=== PATIENT | female | born 1975 | race American Indian/Alaskan Native ===

== ENCOUNTER 2017-12-11 11:10 | Emergency (ER) | payer SELFPAY ==
[2017-12-12 06:13] LABS: Hematocrit 40.2 % (30.3-42.9); Hemoglobin 12.9 gm/dl (10.1-14.3); Mean Corpuscular HGB Conc 32 % (30-34); Mean Corpuscular Hemoglobin 27 pg (28-32); Mean Corpuscular Volume 85 fl (79-97); Platelet Count 254 K/mm3 (140-440); Red Blood Count 4.73 M/mm3 (3.65-5.03); Red Cell Distribution Width 13.7 % (13.2-15.2)
[2017-12-12 06:22] LABS: BUN/Creatinine Ratio 10; Blood Urea Nitrogen 5 mg/dL (7-17); Hemolysis Index 9
--- NOTE | 2017-12-12 06:37 | Emergency Department Report ---
ED General Adult HPI - General Chief complaint: Weakness Stated complaint: ADDISONS DISEASE Time Seen by Provider: 12/12/17 06:29 Source: patient Mode of arrival: Ambulatory Limitations: No Limitations - History of Present Illness Initial comments: Patient states that she has been in this area for 3 months. She was informed by her physician in [place] that he could no longer continue to treat her at its state. She has a history of Manchester's disease. She is simply requesting that we renew her fludrocortisone and prednisone. She is asymptomatic at this time. She denies any recent nausea vomiting dizziness or weakness. She ran out of her medicine one week ago. -: week(s) Consistency: now resolved Improves with: none Worsens with: none Associated Symptoms: denies other symptoms Treatments Prior to Arrival: none - Related Data Previous Rx's Medication Instructions Recorded Last Taken Type Fludrocortisone [Florinef] 0.1 mg PO QDAY #30 tablet 12/12/17 Unknown Rx Prednisone 5 mg PO BID #30 tablet 12/12/17 Unknown Rx Allergies Allergy/AdvReac Type Severity Reaction Status Date / Time amoxicillin Allergy Nausea Verified 12/11/17 12:04 ED Review of Systems ROS: Stated complaint: ADDISONS DISEASE Other details as noted in HPI Constitutional: denies: chills, fever Eyes: denies: eye pain, eye discharge, vision change ENT: denies: ear pain, throat pain Respiratory: denies: cough, shortness of breath, wheezing Cardiovascular: denies: chest pain, palpitations Endocrine: no symptoms reported Gastrointestinal: denies: abdominal pain, nausea, diarrhea Genitourinary: denies: urgency, dysuria, discharge Musculoskeletal: denies: back pain, joint swelling, arthralgia Skin: denies: rash, lesions Neurological: denies: headache, weakness, paresthesias Psychiatric: denies: anxiety, depression Hematological/Lymphatic: denies: easy bleeding, easy bruising ED Past Medical Hx - Past Medical History Hx Headaches / Migraines: Yes Additional medical history: Addidsons Disease - Social History Smoking Status: Current Every Day Smoker Substance Use Type: None - Medications Home Medications: Home Medications Medication Instructions Recorded Confirmed Last Taken Type Fludrocortisone [Florinef] 0.1 mg PO QDAY #30 tablet 12/12/17 Unknown Rx Prednisone 5 mg PO BID #30 tablet 12/12/17 Unknown Rx ED Physical Exam - General Limitations: No Limitations General appearance: alert, in no apparent distress - Head Head exam: Present: atraumatic, normocephalic - Eye Eye exam: Present: normal appearance, PERRL, EOMI. Absent: scleral icterus - ENT ENT exam: Present: mucous membranes moist - Neck Neck exam: Present: normal inspection - Respiratory Respiratory exam: Present: normal lung sounds bilaterally. Absent: respiratory distress - Cardiovascular Cardiovascular Exam: Present: regular rate, normal rhythm. Absent: systolic murmur, diastolic murmur, rubs, gallop - GI/Abdominal GI/Abdominal exam: Present: soft, normal bowel sounds. Absent: distended, tenderness, guarding, rebound, rigid - Extremities Exam Extremities exam: Present: normal inspection - Back Exam Back exam: Present: normal inspection - Neurological Exam Neurological exam: Present: alert, oriented X3, CN II-XII intact. Absent: motor sensory deficit - Psychiatric Psychiatric exam: Present: normal affect, normal mood - Skin Skin exam: Present: warm, dry, intact, normal color. Absent: rash ED Course Vital Signs 12/11/17 12/12/17 12/12/17 12:05 02:48 03:00 Temperature 98.8 F 98.6 F Pulse Rate 83 64 Respiratory 16 16 Rate Blood Pressure 134/87 119/92 Blood Pressure 119/78 [Left] O2 Sat by Pulse 98 100 100 Oximetry 12/12/17 12/12/17 12/12/17 04:00 05:00 06:00 Temperature Pulse Rate Respiratory Rate Blood Pressure 121/71 127/69 118/81 Blood Pressure [Left] O2 Sat by Pulse 100 99 99 Oximetry ED Medical Decision Making - Lab Data Result diagrams: 12/12/17 05:55 12/12/17 05:55 Laboratory Results - last 24 hr 12/12/17 12/12/17 05:55 05:55 WBC 6.1 RBC 4.73 Hgb 12.9 Hct 40.2 MCV 85 MCH 27 L MCHC 32 RDW 13.7 Plt Count 254 Lymph % (Auto) Sandwich Counter Attendant Seg Neutrophils % Sandwich Counter Attendant Sodium 143 Potassium 3.9 Chloride 102.7 Carbon Dioxide 29 Anion Gap 15 BUN 5 L Creatinine 0.5 L Estimated GFR > 60 BUN/Creatinine Ratio 10 Glucose 89 Calcium 9.0 Critical care attestation.: If time is entered above; I have spent that time in minutes in the direct care of this critically ill patient, excluding procedure time. ED Disposition Clinical Impression: Addisons disease Disposition: DC- TO HOME OR SELFCARE Is pt being admited?: No Does the pt Need Aspirin: No Condition: Stable Instructions: [place] Disease (ED) Additional Instructions: Return any acute change or problem. Chronic care can be obtained from the [facility] for example. Primary care obviously is essential for your chronic condition. Prescriptions: Fludrocortisone [Florinef] 0.1 mg PO QDAY #30 tablet Prednisone 5 mg PO BID #30 tablet Referrals: PRIMARY CARE [Primary Care Provider] - 3-5 Days [facility] [Provider Group] - 2-3 Days Time of Disposition: 07:44
[2017-12-12 07:03] LABS: HCG Qualitative,Urine Negative (Negative)
[2017-12-12 07:13] LABS: Bacteria,Urine 1+ /HPF (Negative); Bilirubin,Urine NEG (Negative); Blood,Urine NEG (Negative); Color,Urine Yellow (Yellow); Mucus,Urine FEW /HPF; Nitrite,Urine NEG (Negative); Protein,Urine <15 mg/dL mg/dL (Negative)
[2017-12-12 07:21] LABS: Anisocytosis 1+; Band Neutrophils # (Manual) 0.3 K/mm3; Basophils % (Manual) 0 % (0.0-1.8); Hypochromasia 1+; Ovalocytes Few; Total Cells Counted 100
[2017-12-12 07:22] LABS: Platelet Estimate Appe
[2017-12-12 08:01] VITALS: BP 113/75
== END 2017-12-12 08:07 | disposition home or self-care (01) ==
LOC: ED 11:10
DX: E27.1 Primary adrenocortical insufficiency (principal); F17.200 Nicotine dependence, unspecified, uncomplicated; G43.909 Migraine, unspecified, not intractable, without status migrainosus
CPT/HCPCS: 36415; 80048; 81001; 81025; 85007; 85025; 99283